=== PATIENT | male | born 1950 | race Caucasian/White ===

== ENCOUNTER 2016-11-08 16:34 | Observation (INO) ==
[2016-11-08] MEDS ORDERED: ONDANSETRON 4 MG/2 ML VIAL IV ONE (17:47)
[2016-11-08] MEDS ORDERED: HYDROmorphone 2 MG/ML SYRINGE IV SCH (18:00)
[2016-11-08] MEDS ORDERED: 0.9 % SODIUM CHLORIDE 1,000 ML IV SCH (18:00)
[2016-11-08 18:33] LABS: Basophils # (Auto) 0 K/mcL (0.0-0.3); Basophils % (Auto) 0.1 % (0.0-2.0); Eosinophils # (Auto) 0.1 K/mcL (0.0-0.7); Eosinophils % (Auto) 0.8 % (0.0-7.0); Granulocytes % (Auto) 88.2 % (38.0-78.0); Lymphocytes # (Auto) 0.8 K/mcL (1.5-4.8); Lymphocytes % (Auto) 6.2 % (15.5-49.0); Mean Cell Volume 91.8 fL (80.0-100.0); Mean Corpuscular HGB Conc 34.5 g/dL (31.0-36.0); Mean Corpuscular Hemoglobin 31.7 pg (26.0-34.0); Monocytes # (Auto) 0.6 K/mcL (0.1-0.9); Monocytes % (Auto) 4.7 % (1.0-12.0); Platelet Count 174 K/mcL (140-440); RBC 5.18 M/mcL (4.50-5.90); Red Cell Distribution Width 13.1 % (11.5-14.5)
[2016-11-08 18:54] LABS: ALT/SGPT 16 U/l (0-40); Albumin 4.5 gm/dL (3.2-5.2); Albumin/Globulin Ratio 1.9 (1.0-2.3); Alkaline Phosphatase 46 U/L (39-117); Blood Urea Nitrogen 18 mg/dl (8-23); C-Reactive Protein < 0.3 mg/dl (0.0-0.8)
[2016-11-08] MEDS ORDERED: VANCOMYCIN PER PHARMACY IV ONE (19:07)
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
[2016-11-08] MEDS ORDERED: NALOXONE HCL 0.4 MG/ML VIAL IV PRN (22:23)
[2016-11-08] MEDS ORDERED: ONDANSETRON 4 MG/2 ML VIAL IV PRN (22:23)
[2016-11-08] MEDS ORDERED: oxyCODONE HCL 5 MG TABLET PO PRN (22:23)
[2016-11-08] MEDS ORDERED: ACETAMINOPHEN 325 MG TABLET PO PRN (22:23)
[2016-11-08] MEDS ORDERED: MAGNESIUM HYDROXIDE 30 ML ORAL.SUSP PO PRN (22:23)
[2016-11-08] MEDS ORDERED: HYDROmorphone 2 MG/ML SYRINGE IV PRN (22:23)
[2016-11-08] MEDS: 0.9 % SODIUM CHLORIDE 1,000 ML IV SCH (23:54)
[2016-11-08] MEDS: 0.9 % SODIUM CHLORIDE 10 ML SYRINGE IV SCH (23:54)
[2016-11-09 04:42] LABS: Appearance,Urine CLEAR; Bacteria,Urine 0 /hpf (0); Bilirubin,Urine NEG (NEG); Color,Urine YELLOW; Glucose,Urine (UA) NEGATIVE (NEG); Leukocyte Esterase,Urine NEG /uL (NEG); Mucus,Urine FEW /hpf (0); Nitrate,Urine NEG (NEG); Protein,Urine NEG (NEG); Specific Gravity,Urine 1.017 (1.000-1.035); Urine Blood 0.2 mg/dL (<0.03); Urine Hyaline Cast 1 /lpf (0-2); Urine RBC 29 /hpf (0-1); Urine Squamous Epithelial Cell < 1 /hpf (0-4); Urine Transitional Epi Cells < 1 /hpf (0-2); Urine WBC 2 /hpf (0-4); Urobilinogen,Urine NEG (NEG)
[2016-11-09] MEDS: 0.9 % SODIUM CHLORIDE 10 ML SYRINGE IV SCH ×2 (05:56→12:49)
[2016-11-09 06:25] LABS: Mean Cell Volume 92.4 fL (80.0-100.0); Mean Corpuscular HGB Conc 35.1 g/dL (31.0-36.0); Mean Corpuscular Hemoglobin 32.4 pg (26.0-34.0); Platelet Count 144 K/mcL (140-440); RBC 4.45 M/mcL (4.50-5.90); Red Cell Distribution Width 13.2 % (11.5-14.5)
[2016-11-09 06:47] LABS: ALT/SGPT 11 U/l (0-40); Albumin 3.9 gm/dL (3.2-5.2); Alkaline Phosphatase 38 U/L (39-117); Blood Urea Nitrogen 14 mg/dl (8-23)
[2016-11-09 07:45] LABS: Band Neutrophils % 1 % (0-10); Eosinophils % (Manual) 1 % (0-7); Lymphocytes % 10 % (15-49); Monocytes % (Manual) 6 % (1-12); Platelet Estimate NORMAL (NORMAL); RBC Morphology NORMAL (NORMAL); Segmented Neutrophils % 82 % (38-78)
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
[2016-11-09] MEDS ORDERED: FENOFIBRATE 43 MG CAPSULE PO SCH (09:00)
[2016-11-09] MEDS ORDERED: ALLOPURINOL 100 MG TABLET PO SCH (09:00)
[2016-11-09] MEDS ORDERED: FAMOTIDINE 20 MG TABLET PO SCH (09:00)
[2016-11-09] MEDS ORDERED: CYANOCOBALAMIN (VITAMIN B-12) 500 MCG TABLET PO SCH (09:00)
[2016-11-09] MEDS: 0.9 % SODIUM CHLORIDE 1,000 ML IV SCH (09:10)
--- NOTE | 2016-11-09 09:19 | History and Physical Report ---
DATE OF ADMISSION: 11/08/2016 IDENTIFICATION: A 66-year-old male. CHIEF COMPLAINT: Back pain with diskitis. HISTORY: This gentleman presented to the Emergency Room last night after a fall backwards. He had increased pain and swelling in his back. He had radiographs obtained and was diagnosed with diskitis based on radiographic findings as reported by Radiology. The ER provider did call me with this report and this patient has now been admitted for additional workup. This gentleman has had a history of back pain over the years. He has been seen by myself in years past and has been noted to have quite significant degenerative changes throughout the lumbar spine. He has had previous lumbar surgery. PAST MEDICAL HISTORY: Significant for chronic back pain, history of hyperlipidemia, osteoarthritis, sinusitis, history of a previous pulmonary embolism. PAST SURGICAL HISTORY: Again, he has had a previous lumbar surgery, and several other orthopedic surgeries. He has had a tonsillectomy. FAMILY HISTORY: His father of colon cancer, otherwise noncontributory. MEDICATIONS: 1. Allopurinol. 2. Fenofibrate. 3. Simvastatin. 4. Tadalafil. ALLERGIES: None. REVIEW OF SYSTEMS: A 10-point review of systems is negative, although he has had some slightly increased pain over the last several days. RADIOGRAPHS: Demonstrate an elevated white count at 13.5, sed rate 4.0. IMAGING: Radiographs demonstrate multilevel degenerative changes. I do not see an obvious area in the lumbar spine that is consistent with diskitis. IMPRESSION: Increased back pain after a fall. Presently with a fairly normal sed rate, I think it unlikely that this represents an active diskitis. PLAN: We will plan on obtaining an MRI scan for further diagnostic information this morning. This has been discussed at length with the patient and . GDD:lo Job ID: [id number] Doc ID: [id number] Zachary Akins MD
--- NOTE | 2016-11-09 12:03 | Magnetic Resonance Report ---
CLINICAL INFORMATION: ] Mid back pain following trauma. COMPARISON: 12/22/2012 lumbar MRI TECHNIQUE: Sagittal T1 FLAIR, STIR, fast spin echo T2, axial T2 weighted images were acquired. FINDINGS: Lumbar spine is normal alignment. No fracture or other marrow signal abnormality. Conus medullaris ends at T12 homogeneous signal. Cauda equina roots are unremarkable. No soft tissue abnormalities. The T12-L1, L1-2 and L2-3 disc levels are normal. At L3-4, there is minimal annular bulge and mild facet arthropathy which is unchanged. At L4-5, moderate broad disc protrusion and facet arthropathy results in impingement of the anterior thecal sac moderate central canal, mild bilateral lateral recess stenosis and mild bilateral IV foraminal narrowing. There is only slight impingement of the descending L5 nerve roots in the lateral recesses. At L5-S1, mild broad disc protrusion with left-sided asymmetry and facet arthropathy result in moderate left and mild right IV foraminal narrowing. Mild impingement of the exiting left L5 nerve root IMPRESSION: 1. No acute posttraumatic change 2. Degenerative change, most prominent L4-5 and L5-S1, stable since the 2012 exam Interpreted and Authenticated by: Braden Tay 11/09/16
--- NOTE | 2016-11-09 12:33 | Discharge Summary ---
Medical - DS: Prov Patient information: Note initiated : 11/09/16 at 12:24 pm Patient: Khoa Hutton 66 y/o M admitted on 11/08/16 for Fall with Back Pain. Date of admission: 11/08/16 22:20 Discharge date: 11/09/16 Primary care physician: Trey Hernandez Admitting clinician: Addi Michele Consults: 11/08/16 23:33 Consult to Physician [CONS] Routine Comment: Consulting Provider: Zachary Akins Reason For Exam: Physician to Consult Attending physician on discharge: Cierra Nicolas Medical - DS: Meds - Discharge Medications Prescriptions: Cyclobenzaprine [Flexeril] 5 mg PO Q4HP PRN #30 tablet PRN Reason: Pain HYDROcodone/APAP 5/325MG [Phillips 5/325Mg] 1 tab PO Q4HP PRN #30 tablet PRN Reason: Pain Active and Home Medications: Discharge medications: Phillips 5/325 one every 4 hours as needed back pain Flexeril 5 mg 1 p.o. every 4 hours as needed back spasms Tylenol 650 mg every 6 hours as needed Allopurinol 200 mg daily Vitamin B12 1000 mcg daily Fenofibrate 43 mg daily Simvastatin 20 mg every afternoon Sialidosis 10 mg daily as needed Previous home Medications: cyanocobalamin (vit B-12) 1,000 mcg tablet 1,000 mcg PO QDAY 04/22/15 [History Confirmed 11/08/16 Last Taken Unknown] allopurinol 100 mg tablet 200 mg PO QDAY #180 tab 05/17/16 [Rx Confirmed Last Taken Unknown] fenofibrate 54 mg tablet 54 mg PO QDAY #90 tab 05/17/16 [Rx Confirmed 11/08/16 Last Taken Unknown] simvastatin 20 mg tablet 20 mg PO QPM #90 tab 05/17/16 [Rx Confirmed 11/08/16 Last Taken Unknown] tadalafil 10 mg tablet 10 mg PO QDAY PRN #10 tab 05/17/16 [Rx Confirmed Last Taken Unknown] Medical - DS: Hosp Hospital course: Mr. Hutton is a 66 year old M November 08, 2016: History of present illness: Mr. Hutton is a 66 year old Male with h/o back injury and chr back pain and stiffness. The patient notes that he has been having significant stiffness and pain in his lower back over the last 2 years. The patient notes his symptoms likely started after a colonoscopy procedure. He always had back issues from a remote trauma history in the past but his symptoms got much worse over the last 2 yrs. The patient has had workup done for same, an MRI of the lower back in 2012, CT lumbar spine in 2017. HE note he had also seen spine surgeon Dr Akins and was told this is likely arthritis. This time around the patient was at his baseline till this afternoon, when while removing his black kothari shrubs, he fell backwards and injured his lower back, initially he did not think much of it as it was not much of a fall as per him. How ever later he started to have pain in the back, which was severe located in the right upper back/ posterior rib region. Pain was severe, worse with movement, sharp, associated with some nausea but no vomiting. He also reported some abdominal discomfort which resolved with one dose of zofran. The pt also noted a swelling in the lower back region and therefore decided to come to the ER for further management. According to the provider in the ER the patient also had pain in the lower back region. The patient denies any gradual worsening of his pain over last few weeks, no fever, no chills, no cough, no bowel or bladder complaints, no rigors or night sweats, was at his baseline health before he fell down with this pain. In the ER Pt was noted to be in significant pain, which responded to one dose of 1mg dilaudid. The patient during my eval was smiling and did not report any pain or discomfort. He had X ray done of the T spine and L spine which were read as severe diskitis. Spine surgery was consulted for eval and management who advised admission to the medicine service , and that he would consult in the AM. Labs show wbc of 13K, creat of 1.5, crp < 0.0.3, esr 4, MRI was initially planned to be done, tonight however due to some implant in the ear many years ago, [facility] declined to do the MRI. Our quality systems technician was unavailable for the scan. I discussed the case with Dr Aikns, who noted that MRI needs to be done but can happen tomorrow and if the patient indeed has diskitis then a IR guided biopsy of the infected material would be useful. November 09: Hospital course: The patient was admitted to observation. He remained fairly comfortable over the course of the evening. He was seen by Dr. Akins this morning. He had an MRI of his lumbosacral spine, which does show degenerative changes, which are stable, but does not show any signs of inflammation or discitis. He likely just had musculoskeletal pain related to his fall yesterday, which does seem much improved today. He tells me he is going to fly to [place] in a few days, so I offered to give him pain meds and muscle relaxers in case the back pain flared up. Today, he denies fever chills, headaches or dizziness, chest pain or shortness of breath, GI or symptoms. He notes he has some mild soreness in his lumbosacral area. Yesterday the more intense pain was in the right flank and the right lower ribs posteriorly. He says the pain is essentially resolved this morning. On exam, he is awake and alert and in no acute distress. No trouble sitting up on the side of the bed without help. Neck is supple without obvious lymphadenopathy or JVD. Cardiac exam shows regular rate and rhythm. Lungs are clear to auscultation. Abdomen is soft and nontender. He has no tenderness over his spine. He does have a well-healed lumbar spine scar. There is a little prominence above this, but I suspect that is just a vertebral protuberance, related to the change in his normal spine curve since surgery. There is no CVA tenderness or rib pain that I can elicit either Extremities show no obvious edema. Neurologic exam is grossly nonfocal. Assessment and plan: 1. Back pain. Is likely mechanical pain related to his fall yesterday. It is actually much improved today. CT scans and MRI did not show signs of discitis. Leukocytosis noted yesterday has resolved spontaneously today. Per Dr. Akins, the patient should be safe to discharge home. As noted above, I will give him a short-term prescription for Phillips and Flexeril , in case the pain returns. He should otherwise follow-up with his primary care physician, and orthopedics as needed. 2. Leukocytosis. Resolved. 3. Renal. Creatinine was elevated yesterday, but is back to normal today after hydration. -Patient did have hematuria on his urinalysis yesterday. It is unclear if this is due to trauma or not. This should be followed up with his primary care physician. Approximately 40 minutes was spent today, reviewing the patient's chart and test results, interviewing and examining him, reviewing his case at our team meeting, and then reviewing his case with Dr. Akins of orthopedics. Discharge diagnosis: Fall with right flank and low back pain. Hematuria. - Time Spent with Patient Total time spent providing and/or coordinating discharge services: Greater than 30 minutes Medical - DS: Exam - Constitutional Vitals: Vital Signs Temp Pulse Resp BP Pulse Ox 11/09/16 11:44 98.2 F 52 L 16 110/66 96 11/09/16 07:38 97.5 F 47 L 14 119/74 95 11/09/16 03:53 97.6 F 51 L 16 127/67 95 11/08/16 22:23 97.6 F 54 L 16 132/74 94 Intake and Output 11/08/16 11/09/16 11/09/16 21:59 05:59 13:59 Intake Total 1550 / 1550 240 / 240 Output Total 650 / 650 Balance 900 / 900 240 / 240 Intake: Oral 1550 / 1550 240 / 240 Output: Void Amount 650 / 650 Other: Meal Washam, fruit cup, soup Breakfast Percent of Meal Consumed 100% 100% Feeding Ability Independent Independent Weight 199 lb Medical - DS: Data Labs on day of discharge: Labs from last 24 hours 11/09/16 11/09/16 11/09/16 04:15 04:15 04:15 WBC 8.6 RBC 4.45 L Hgb 14.4 Hct 41.1 MCV 92.4 MCH 32.4 MCHC 35.1 RDW 13.2 Plt Count 144 MPV 9.6 Total Counted 100 Seg Neutrophils % 82 H Band Neutrophils % 1 Lymphocytes % 10 L Monocytes % (Manual) 6 Eosinophils % (Manual) 1 Nucleated RBCs 1 H Platelet Estimate Normal RBC Morphology Normal Sodium 145 Potassium 3.6 Chloride 110 H Carbon Dioxide 24 Anion Gap 11.0 BUN 14 Creatinine 1.0 GFR Calculation 78 Glucose 93 Calcium 8.3 L Total Bilirubin 0.7 AST 14 ALT 11 Alkaline Phosphatase 38 L Total Protein 5.9 Albumin 3.9 Globulin 2.0 L Albumin/Globulin Ratio 2.0 Procalcitonin < 0.10 November 09: MRI of the spine shows no acute posttraumatic change. Degenerative changes are noted L4-L5 and L5-S1, stable. November 08: CBC: White blood cell count 13,500. Hemoglobin 16, hematocrit 47. Granulocyte count 11,900. Lactic acid was normal at 1.8. Sed rate normal at 4 Rib x-rays: Ribs are unremarkable. There is a large enthesophyte in the inferior acromion which would predispose to extrinsic rotator cuff impingement. Thoracic spine x-ray looks stable. Lumbar spine x-ray showed degenerative changes, with moderate progression. Urinalysis showed 29 red blood cells, but was otherwise normal. Medical - DS: A/P - Patient/Caregiver Discharge Instructions Activity: increase activity as tolerated Diet: Regular Diet Additional Instructions: 1. Acute back pain after fall. MRI of your spine did not show any signs of disc inflammation or rupture. You do have degenerative changes of L4 and L5, and S1. Since you are getting ready to take a trip, I have prescribed a pain medication as well as a muscle relaxer, in case her back pain flares up while you are away. Otherwise you should continue your usual activities. Follow-up with your primary care physician and/or orthopedics as needed. #2. He did have some blood in your urine yesterday. That may or may not be related to your fall and your right flank pain. Please have your doctor do a follow-up urine test to verify if this is persistent. Certainly if you start to see blood in your urine, or have recurrent flank pain or increasing abdominal or back pain, please notify your doctor RIMA. Discharge medications: Phillips 5/325 one every 4 hours as needed back pain Flexeril 5 mg 1 p.o. every 4 hours as needed back spasms Tylenol 650 mg every 6 hours as needed Allopurinol 200 mg daily Vitamin B12 1000 mcg daily Fenofibrate 43 mg daily Simvastatin 20 mg every afternoon Sialidosis 10 mg daily as needed Prescriptions: Cyclobenzaprine [Flexeril] 5 mg PO Q4HP PRN #30 tablet PRN Reason: Pain HYDROcodone/APAP 5/325MG [Phillips 5/325Mg] 1 tab PO Q4HP PRN #30 tablet PRN Reason: Pain - Follow up Plan Follow up with: Trey Hernandez MD [Primary Care Provider] - Disposition: Home, Self-Care Prognosis: Good Rehab Potential: Good I certify that the patient requires SNF services: No Overall status at discharge: patient is progressing back to baseline Medical - DS: Qual - VTE Deep Vein Thrombosis/Pulmonary Embolism Present on Admission: No
[2016-11-09] MEDS ORDERED: SIMVASTATIN 20 MG TABLET PO SCH (21:00)
== END 2016-11-09 13:40 | disposition home or self-care (01) ==
LOC: ED 16:34 → MEDSUR 16:34 → SUATTDRO 22:20 → MEDSUR 22:24
PROVIDERS: ADMIT Internal Medicine; ATTEND Internal Medicine

== ENCOUNTER 2021-08-21 07:13 | Observation (INO) ==
[2021-08-14 11:42] LABS: Appearance,Urine CLEAR (Clear); Bilirubin,Urine Negative (Negative); Color,Urine YELLOW; Culture Indicated,Urine No; Glucose,Urine (UA) Negative (Negative); Ketones,Urine Negative (Negative); Leukocyte Esterase,Urine Negative /uL (Negative); Nitrate,Urine Negative (Negative); Protein,Urine Negative (Negative); Urine Blood Negative (Negative); Urobilinogen,Urine Negative
[2021-08-14 15:24] LABS: Basophils # (Auto) 0.06 K/mcL (0.00-0.30); Basophils % (Auto) 0.9 % (0.0-2.0); Eosinophils # (Auto) 0.16 K/mcL (0.00-0.70); Eosinophils % (Auto) 2.3 % (0.0-7.0); Hematocrit 46.1 % (40.1-51.0); Hemoglobin 15.9 g/dL (13.7-17.5); Lymphocytes # (Auto) 1.47 K/mcL (1.50-4.80); Lymphocytes % (Auto) 21.6 % (15.5-49.0); Mean Corpuscular HGB Conc 34.5 g/dL (31.0-36.0); Monocytes # (Auto) 0.45 K/mcL (0.10-0.90); Monocytes % (Auto) 6.6 % (1.0-12.0); Platelet Count 184 K/mcL (140-440); RBC 5.01 M/mcL (4.63-6.08); WBC 6.8 K/mcL (4.5-11.0)
[2021-08-14 18:59] LABS: INR 0.9 (0.9-1.1); Prothrombin Time 12.4 sec (11.9-14.5)
[2021-08-14 19:14] LABS: ALT/SGPT 20 U/L (<40); AST/SGOT 18 U/L (<40); Albumin 4.6 gm/dL (3.2-5.2); Alkaline Phosphatase 60 U/L (39-117); Bilirubin,Total 0.6 mg/dL (0.1-1.0); Blood Urea Nitrogen 19 mg/dL (8-23); Calcium 9.6 mg/dL (8.6-10.4); Carbon Dioxide 20 mmol/L (22-30); Chloride 106 mmol/L (96-108); Globulin 2.3 gm/dL (2.2-3.7); Glomerular Filtration Rate 86; Glucose 95 mg/dL (70-105)
[~2021-08-21 07:13] MED LIST: ceFAZolin 2 GM in DEXTROSE 5% IN WATER 50 ML IV SCH
[2021-08-21] MEDS ORDERED: KETAMINE 50 MG/ML Syringe (ANEST) IV ONE (08:17)
[2021-08-21] MEDS ORDERED: fentaNYL 100 MCG/2 ML VIAL IV ONE (08:17)
[2021-08-21] MEDS ORDERED: SUGAMMADEX SODIUM 200 MG/2 ML VIAL IV ONE (08:17)
[2021-08-21] MEDS ORDERED: GLYCOPYRROLATE 0.2 MG/ML VIAL IV ONE (08:17)
[2021-08-21] MEDS ORDERED: hydrALAZINE 20 MG/ML VIAL ONE (08:17)
[2021-08-21] MEDS ORDERED: SUCCINYLCHOLINE 20 MG/ML ML IV ONE (08:17)
[2021-08-21] MEDS ORDERED: TRANEXAMIC ACID 1,000 MG/10 ML VIAL ONE (08:17)
[2021-08-21] MEDS ORDERED: ONDANSETRON 4 MG/2 ML VIAL ONE (08:17)
[2021-08-21] MEDS ORDERED: PROPOFOL 200 MG/20 ML VIAL IV ONE (08:17)
[2021-08-21] MEDS ORDERED: MAGNESIUM SULFATE 2 GM/50 ML BAG IV ONE (08:17)
[2021-08-21] MEDS ORDERED: LIDOCAINE HCL/PF 100 MG/5 ML SYRINGE IV ONE (08:17)
[2021-08-21] MEDS ORDERED: DEXAMETHASONE 10 MG/ML VIAL ONE (08:17)
[2021-08-21] MEDS ORDERED: THROMBIN (BOVINE) 5,000 UNIT VIAL TOPICAL ONE (09:06)
[2021-08-21] MEDS ORDERED: GELATIN SPONGE,ABSORBABLE 1 EACH SPONGE TOPICAL ONE (09:06)
--- NOTE | 2021-08-21 10:28 | EKG ---
[facility] Test Date: 2021-08-14 Pat Name: Khoa Hutton Department: [facility] Room: Gender: Male Histology Specialist: : [id number] Requested By: Jose Roberto Caldwell Order Number: [id number] Reading MD: Richar Abraham Measurements Intervals [place] Rate: 68 P: 53 HI: 159 QRS: -61 QRSD: 112 T: 8 QT: 378 QTc: 402 Interpretive Statements Sinus rhythm Left anterior fascicular block Abnormal R-wave progression, late transition Probable left ventricular hypertrophy Electronically Signed On 08-21-2021 10:27:34 PDT by Richar Abraham /store/M0/[id number]/[id number].pdf
[2021-08-21] MEDS: VANCOMYCIN 1 GM VIAL TOPICAL SCH ×2 (11:50→12:14)
[2021-08-21] MEDS ORDERED: BUPIVACAINE 0.25% 50 ML VIAL IJ ONE (12:14)
[2021-08-21] MEDS ORDERED: GUM MASTIC/STORAX/MSAL/ALCOHOL 1 DOSE DROPERETTE TOPICAL ONE (12:16)
--- NOTE | 2021-08-21 12:28 | XRay Report ---
INDICATION: l4-5 decompression/fusion TECHNIQUE: Intraoperative fluoroscopy and spot films. 0.7 minutes fluoroscopy and 25.2 mg exposure utilized IMPRESSION: Intraoperative fluoroscopy and spot films Interpreted and Authenticated by: Braden Sharpe 08/21/21
--- NOTE | 2021-08-21 12:34 | Brief Operative Note ---
Brief Operative Note Date of procedure: 08/21/21 Pre-op diagnosis: stenosis, instability L4/5 Procedure: decompression and fusion L4/5 Grafts/Implants: Yes Anesthesia: GETA Findings: massive extrusion Complications: none Surgeon: Zachary Akins Estimated blood loss (cc): 500 Condition: stable Disposition: floor
[2021-08-21] MEDS ORDERED: ONDANSETRON 4 MG ODT TABLET SL PRN (12:35)
[2021-08-21] MEDS ORDERED: morphine 4 MG/ML VIAL IV PRN (12:35)
[2021-08-21] MEDS ORDERED: ONDANSETRON 4 MG/2 ML VIAL IV PRN ×2 (12:35→12:47)
[2021-08-21] MEDS ORDERED: PROMETHAZINE 25 MG/ML VIAL IV PRN ×2 (12:35→12:47)
[2021-08-21] MEDS ORDERED: MEPERIDINE 25 MG/ML VIAL IV PRN (12:47)
[2021-08-21] MEDS ORDERED: IPRATROPIUM/ALBUTEROL 3 ML AMPUL.NEB NEB PRN (12:47)
[2021-08-21] MEDS ORDERED: ACETAMINOPHEN 1,000 MG/100 ML BAG IV ONE (12:47)
[2021-08-21] MEDS ORDERED: diphenhydrAMINE 50 MG/ML VIAL IV PRN (12:47)
[2021-08-21] MEDS ORDERED: LACTATED RINGERS 250 ML IV PRN (12:47)
[2021-08-21] MEDS ORDERED: NALOXONE HCL 0.4 MG/ML VIAL IV PRN (12:47)
[2021-08-21] MEDS ORDERED: fentaNYL 100 MCG/2 ML VIAL IV PRN (12:47)
[2021-08-21] MEDS ORDERED: LACTATED RINGERS 1,000 ML IV SCH (13:00)
[2021-08-21] MEDS: 0.9 % SODIUM CHLORIDE 1,000 ML IV SCH (16:19)
[2021-08-21] MEDS: ceFAZolin 1 GM VIAL IV SCH (16:22)
[2021-08-21] MEDS: 0.9 % SODIUM CHLORIDE 10 ML SYRINGE IV SCH ×2 (16:23→21:54)
--- NOTE | 2021-08-21 16:26 | Operative Note ---
DATE OF OPERATION: 08/21/2021 PREOPERATIVE DIAGNOSES: Massive disk extrusion at the L4-L5 level, which is above a fusion. The patient has kyphosis and severe central stenosis. POSTOPERATIVE DIAGNOSES: Massive disk extrusion at the L4-L5 level, which is above a fusion. The patient has kyphosis and severe central stenosis. OPERATION PROPOSED: 1. Lumbar decompression, which involves decompression through an area that has had previous surgical decompression and fusion. There is extensive scarring in the area with excision of disk herniation. 2. Posterior nonsegmental instrumentation using NuVasive pedicle screw construct L4-L5. 3. Posterior/posterolateral fusion, L4-L5. 4. Aspiration of iliac crest for osteoprogenitor cells. 5. Application of prosthetic device interbody space and interbody fusion, L4-L5. OPERATION PERFORMED: 1. Lumbar decompression, which involves decompression through an area that has had previous surgical decompression and fusion. There is extensive scarring in the area with excision of disk herniation. 2. Posterior nonsegmental instrumentation using NuVasive pedicle screw construct L4-L5. 3. Posterior/posterolateral fusion, L4-L5. 4. Aspiration of iliac crest for osteoprogenitor cells. 5. Application of prosthetic device interbody space and interbody fusion, L4-L5. SURGEON: Zachary Akins M.D. INDICATIONS: This is a gentleman who has had really quite disabling radicular symptoms. He has a massive disk herniation at L4-L5 causing severe central stenosis and elected to proceed with a decompression and fusion. OPERATION IN DETAIL: Informed consent was obtained. The patient was taken to the operating room and provided with appropriate anesthetic and prophylactic antibiotics. His back was prepped sterilely. A midline incision was made centered over the L4-L5 interspace. I dissected down to expose spinous process and lamina of L4. Previously the spinous process of L5 was excised and lamina of L5 was excised. I debrided scar down to expose the spinous process and lamina of L4. I dissected out and around the facet joint to expose the transverse process of L4 and L5 was buried in this fusion mass. The facet joint was very hypertrophic. This was debrided and I defined the facet using a high-speed wade. Decompression was then performed by debriding through the scar. I worked my way, thinning the scar, followed the pedicle of L5 on the left and was able to mobilize the thecal sac. There was a small area where the patient did have a CSF leak. This was repaired with 4-0 Vicryl and was watertight with Valsalva x2. I then mobilized the dura and probed beneath this. A massive amount of disk material was debrided from beneath the thecal sac. I then placed pedicle screws by passing a gearshift awl, cannulating the pedicle. I tapped the pedicle and probed to ensure there was no pedicle wall violation. Appropriate length pedicle screw was placed at L4 and L5, both on the right and on the left. I aspirated the iliac crest for osteoprogenitor cells. This was applied to our locally-harvested bone graft as well as to the Osteocel. I then performed the application of prosthetic device interbody space and interbody fusion. The nerve root was mobilized. I extensively curetted the disc space, debriding it down to subchondral bone. The disk was filled with bone graft and I then filled the cage also from NuVasive with graft. It was impacted into the site prepared for it. I then performed the posterior and posterolateral fusion. This was done by extensively decorticating the posterolateral aspect of the spine. I packed morcellized graft into and against the decorticated posterolateral aspect of the spine to allow for fusion. The wounds had been irrigated thoroughly with pulsatile lavage prior to placing any bone graft. I completed the procedure by compressing across the interbody graft. I tightened and torqued the noelle into the top-loading pedicle screws. The wounds were closed over a deep drain with an 0 Vicryl in interrupted fashion, 2-0 Vicryl inverted deep dermal, and running subcuticular. Procedure was tolerated well. No complications. ESTIMATED BLOOD LOSS: 500 mL. OMAR:ish Job ID: [id number] Doc ID: [id number] Zachary Akins MD
[2021-08-21] MEDS: ACETAMINOPHEN W/CODEINE #3 1 TABLET PO PRN (19:55)
[2021-08-21] MEDS: DOCUSATE SODIUM 100 MG CAPSULE PO SCH (19:57)
[2021-08-21] MEDS: SENNOSIDES 1 TABLET PO SCH (19:57)
[2021-08-22] MEDS: 0.9 % SODIUM CHLORIDE 1,000 ML IV SCH ×2 (02:27→10:20)
[2021-08-22] MEDS: ceFAZolin 1 GM VIAL IV SCH (02:27)
[2021-08-22] MEDS ORDERED: ceFAZolin 1 GM VIAL ONE (02:34)
[2021-08-22] MEDS: 0.9 % SODIUM CHLORIDE 10 ML SYRINGE IV SCH ×3 (05:15→20:31)
[2021-08-22 07:57] LABS: Hematocrit 37.4 % (40.1-51.0)
[2021-08-22] MEDS: FENOFIBRATE 43 MG CAPSULE PO SCH (08:15)
[2021-08-22] MEDS: DOCUSATE SODIUM 100 MG CAPSULE PO SCH ×2 (08:15→20:31)
[2021-08-22] MEDS: ALLOPURINOL 300 MG TABLET PO SCH (08:15)
[2021-08-22] MEDS: METHOCARBAMOL 750 MG TABLET PO PRN ×2 (08:15→23:55)
[2021-08-22] MEDS: MULTIVIT,THER IRON,CA,FA & MIN 1 TABLET PO SCH (08:15)
[2021-08-22] MEDS: FINASTERIDE 5 MG TABLET PO SCH (08:15)
[2021-08-22 08:25] LABS: Blood Urea Nitrogen 12 mg/dL (8-23); Calcium 8.1 mg/dL (8.6-10.4); Carbon Dioxide 22 mmol/L (22-30); Chloride 109 mmol/L (96-108); Glomerular Filtration Rate 90; Glucose 107 mg/dL (70-105)
--- NOTE | 2021-08-22 09:54 | General Surgery Progress Note ---
SUBJECTIVE Subjective Patient information: Note initiated : 08/22/21 at 9:52 am Service Date, if different from initiated Date: [] Patient: Khoa Hutton 71 y/o M admitted on for L4-5 Decompression with Fusion. Chief Complaint: [] Principal diagnosis: spondylolisthesis/stenosis Constitutional Vitals: Vital Signs Temp Pulse Resp BP Pulse Ox O2 Del Method O2 Flow Rate 97.8 F 81 16 109/62 93 2 08/22/21 07:43 08/22/21 07:43 08/22/21 07:43 08/22/21 07:43 08/22/21 07:43 08/22/21 07:43 08/22/21 07:43 Period Temp Pulse Resp BP Sys/Whitman Pulse Ox O2 Del Method O2 Flow Rate Last 24 Hr 97.1 F-98.7 F 64-98 12-21 101-137/57-91 85-97 Nasal Cannula- Nasal Cannula 2-10 Intake and Output 08/21/21 08/22/21 08/22/21 21:59 05:59 13:59 Intake Total 240 1000 240 Output Total 105 1515 120 Balance 135 -515 120 Intake & Output: Intake & Output 08/21/21 08/22/21 08/22/21 21:59 05:59 13:59 Intake Total 240 1000 240 Output Total 105 1515 120 Balance 135 -515 120 Intake: IV 1000 Sodium Chloride 0.9% 1,000 ml @ 1000 100 mls/hr IV .Q10H LUISITO Rx#: [id number] Oral 240 0 240 Output: Drainage 105 65 60 Back PRINCESS Drain 105 65 60 Drainage 60 Back PRINCESS Drain 60 Urine Catheter Amount 1450 Other: Meal ice cream x2 Breakfast Percent of Meal Consumed 100% 100% Feeding Ability Independent Independent Urine Appearance Clear Clear Clear Uretheral (Jones) Clear Clear Urine Color Bright Yellow Bright Yellow Straw Uretheral (Jones) Dark Yellow Straw Urine Odor Normal Normal Extremities Exam Extremities exam: Present neurovascular intact A/P Narrative A/P Narrative: status post fusion Plan of Treatment: mobilize with PT DC tomorrow Time Spent With Patient Time: Total time spent is greater than 50% in coordination of care (as documented) at patient's floor/unit and/or counseling patient: Total time spent with greater than 50% in coordination of care (as documented) at patient's floor/unit and/or counseling patient:: less than 15 minutes Critical Care Time: No
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
[2021-08-22] MEDS: VANCOMYCIN 1 GM VIAL TOPICAL SCH (13:03)
[2021-08-22] MEDS: ACETAMINOPHEN W/CODEINE #3 1 TABLET PO PRN (13:14)
[2021-08-22] MEDS: SENNOSIDES 1 TABLET PO SCH (20:31)
[2021-08-23] MEDS: ACETAMINOPHEN W/CODEINE #3 1 TABLET PO PRN (02:40)
[2021-08-23] MEDS: 0.9 % SODIUM CHLORIDE 10 ML SYRINGE IV SCH (05:26)
[2021-08-23] MEDS: FENOFIBRATE 43 MG CAPSULE PO SCH (09:56)
[2021-08-23] MEDS: FINASTERIDE 5 MG TABLET PO SCH (09:56)
[2021-08-23] MEDS: ALLOPURINOL 300 MG TABLET PO SCH (09:56)
[2021-08-23] MEDS: DOCUSATE SODIUM 100 MG CAPSULE PO SCH (09:56)
[2021-08-23] MEDS: MULTIVIT,THER IRON,CA,FA & MIN 1 TABLET PO SCH (09:56)
== END 2021-08-23 13:45 | disposition home or self-care (01) ==
LOC: SUR 07:13 → MEDSUR 07:13 → SUR 08-23 13:45 → MEDSUR 08-24 10:45
PROVIDERS: ADMIT Orthopaedic Surgery Orthopaedic Surgery of the Spine; ATTEND Orthopaedic Surgery Orthopaedic Surgery of the Spine